=== PATIENT | female | born 1970 | race Caucasian/White ===

== ENCOUNTER 2016-06-12 18:19 | Emergency (ER) | payer OTHER ==
[2016-06-12 19:25] VITALS: RESP 16; TEMP 96.9
[2016-06-12 19:58] VITALS: BP 112/50; PULSE 68; O2SAT 99
== END 2016-06-12 19:37 | disposition home or self-care (01) | DRG 914 ==
LOC: ED 18:19
DX: S09.90XA Unspecified injury of head, initial encounter (principal); S16.9XXA Unspecified injury of muscle, fascia and tendon at neck level, initial encounter; W21.89XA Striking against or struck by other sports equipment, initial encounter
CPT/HCPCS: 99282

== ENCOUNTER 2018-08-20 14:09 | Outpatient (CLI) | payer OTHER ==
[2016-06-12 19:58] VITALS: O2SAT 99
== END 2018-08-20 14:10 | disposition home or self-care (01) | DRG 313 ==
LOC: CONVCARE 14:09
PROVIDERS: ATTEND Internal Medicine Cardiovascular Disease
DX: R07.9 Chest pain, unspecified (principal)
CPT/HCPCS: 93005